=== PATIENT | male | born 1940 | race Caucasian/White ===

== ENCOUNTER 2018-08-03 12:25 | Outpatient (CLI) | payer MEDICARE, OTHER ==
--- NOTE | 2018-08-03 14:05 | RAD ---
Retrograde urethrogram. HISTORY: Bladder outlet obstruction. Stricture. FINDINGS: The distal saphenous was sterilely prepped. Lidocaine gel was used to carefully inserted a Bambi tree catheter tip. Isovue 300 contrast was used to opacify the normal-appearing female urethra. Initially, some difficul ty was encountered at the spastic sphincter. More forcefully injected contrast did pass through the prostatic urethra and into the urinary bladder. No focal strictures are apparent. IMPRESSION: No evidence of urethral injury or stricture.
== END 2018-08-03 12:26 | disposition home or self-care (01) ==
LOC: RAD 12:25
PROVIDERS: ATTEND Urology
DX: N35.919 Unspecified urethral stricture, male, unspecified site (principal)
CPT/HCPCS: 51610; 74450

== ENCOUNTER 2020-06-13 13:07 | Inpatient (IN) | payer MEDICARE, OTHER ==
[2020-06-13 13:35] LABS: Hemoglobin 11.8 g/dL (14.0-18.0); Mean Corpuscular Hemoglobin 29.9 pg (27.0-31.0); Mean Corpuscular Volume 93.3 fL (78.0-98.0); Mean Platelet Volume 8.2 fL (7.4-10.4); Platelet Count 717 thou/uL (130-400); RBC Distribution Width 17.4 % (11.5-14.5); Red Blood Cell (RBC) Count 3.95 mill/uL (4.70-6.10)
[2020-06-13 13:54] LABS: ALT (SGPT) 13 U/L (8-55); AST (SGOT) 42 U/L (5-34); Albumin 3.9 g/dL (3.4-4.8); Alkaline Phosphatase 98 U/L (40-110); Anion Gap 14 mmol/L (10-20); BUN (Urea Nitrogen) 19 mg/dL (8.4-25.7); Bilirubin, Total 0.6 mg/dL (0.2-1.2); Calc. Creatinine Clearance 0 mL/min (70-130); Carbon Dioxide 20 mmol/L (23-31); Chloride 108 mmol/L (98-107); Glucose 128 mg/dL (83-110); Potassium 4.4 mmol/L (3.5-5.1); Protein, Total 6.9 g/dL (5.8-8.1); Sodium 138 mmol/L (136-145)
[2020-06-13 13:56] LABS: Anisocytosis SLIGHT = 6-15 cells (100X) (0-5/hpf); Band 27 % (5-11); Eosinophils 3 % (0-10); Giant Platelets SLIGHT; Large Platelets SLIGHT; Lymphocytes 9 % (21-51); MDiff Complete? YES; Metamyelocyte 3 % (0-0); Monocytes 3 % (0-10); Myelocyte 5 % (0-0); Neutrophil 44 % (42-75); Nucleated RBC 2 % (0); Platelet Morphology Comment Appears Increased; Polychromasia MODERATE = 3-4 cells (100X) (0-2/hpf); Reactive Lymphocytes 5 % (0-10); White Blood Cell (WBC) Count 14.5 thou/uL (4.8-10.8)
[2020-06-13] MEDS ORDERED: Aspirin Chewable 81 MG TAB ONE (14:35)
[2020-06-13] MEDS ORDERED: Lidocaine Viscous Sol 2% 15 ml UD Cup ONE (15:05)
[2020-06-13] MEDS ORDERED: Mag-Al 1200 mg/1200 mg/30 ML UDCUP ONE (15:05)
[2020-06-13] MEDS ORDERED: cefTRIAXone\\ROCEPHIN 1 GM VIAL ONE (15:05)
[2020-06-13 15:27] LABS: INR-International Normal Ratio 1.2; PTT 34.6 sec (22.9-36.1); Prothrombin Time 15.1 sec (12.0-14.7)
[2020-06-13 16:41] LABS: Magnesium 2.4 mg/dL (1.6-2.6); Phosphorus 3.8 mg/dL (2.3-4.7)
[2020-06-13 17:00] LABS: Bilirubin Negative (Negative); Blood, Urine Negative (Negative); Clarity Clear (Clear); Glucose, Urine (Dipstick) Normal (Negative); Ketone, Urine Negative (Negative); Leukocyte Negative Leu/uL (Negative); Nitrite Negative (Negative); Protein, Urine (Dipstick) 300 mg/dL (Neg-Trace); RBC/HPF 0-3 HPF (0-3); Specific Gravity, Urine 1.021 (1.002-1.036); Squamous Epithelial 0-3 HPF (0-3); Urobilinogen Normal mg/dL (Less than 2); WBC/HPF 0-3 HPF (0-3)
[2020-06-13 17:01] LABS: Bacteria/HPF 1+ HPF (None Seen)
[2020-06-13] MEDS ORDERED: Acetaminophen 650 MG Suppository PR PRN (17:31)
[2020-06-13] MEDS ORDERED: Acetaminophen 325 MG TAB PO PRN (17:31)
[2020-06-13 20:36] LABS: Troponin I 0.019 ng/mL (< 0.028)
[2020-06-13 20:52] VITALS: BMI 19.8
[2020-06-13] MEDS: Atorvastatin Calcium 40 MG TAB PO SCH (21:30)
[2020-06-13] MEDS: Heparin 5,000 UNITS/ML VIAL SC SCH (21:30)
[2020-06-14 00:39] LABS: SARS-CoV-2 PCR by NAA Not Detected (NotDetected)
[2020-06-14 05:32] LABS: Hemoglobin 10.3 g/dL (14.0-18.0); Mean Corpuscular HGB CONC 34.4 g/dL (32.0-36.0); Mean Corpuscular Hemoglobin 32.2 pg (27.0-31.0); Mean Corpuscular Volume 93.4 fL (78.0-98.0); RBC Distribution Width 17.2 % (11.5-14.5); Red Blood Cell (RBC) Count 3.21 mill/uL (4.70-6.10); White Blood Cell (WBC) Count 10.3 thou/uL (4.8-10.8)
[2020-06-14 05:36] LABS: Anion Gap 13 mmol/L (10-20); BUN (Urea Nitrogen) 19 mg/dL (8.4-25.7); Calc. Creatinine Clearance 48 mL/min (70-130); Calcium 8.4 mg/dL (7.8-10.44); Carbon Dioxide 21 mmol/L (23-31); Cardiac Risk 6.5 (Less than 4.5); Chloride 108 mmol/L (98-107); Cholesterol 110 mg/dl (< 200 Desired); Glucose 94 mg/dL (83-110); HDL Cholesterol 17 mg/dL (>60 Neg Risk); LDL Cholesterol, Calculated 66 mg/dL; Potassium 4.1 mmol/L (3.5-5.1); Sodium 138 mmol/L (136-145); Triglycerides 135 mg/dL (Less than 150)
[2020-06-14 06:24] LABS: Band 13 % (5-11); Eosinophils 7 % (0-10); Lymphocytes 18 % (21-51); MDiff Complete? YES; Mean Platelet Volume 8.2 fL (7.4-10.4); Monocytes 4 % (0-10); Neutrophil 56 % (42-75); Platelet Count 573 thou/uL (130-400); Platelet Morphology Comment Appears Increased
[2020-06-14] MEDS: Aspirin 81 mg Enteric Coated Tablet PO SCH (08:18)
[2020-06-14] MEDS: Heparin 5,000 UNITS/ML VIAL SC SCH ×2 (08:18→21:50)
[2020-06-14] MEDS: hydrALAZINE 20 MG/ML VIAL SLOW IVP PRN (08:51)
[2020-06-14] MEDS ORDERED: Tamsulosin HCl 0.4 MG CAP PO SCH (09:00)
[2020-06-14] MEDS ORDERED: Clopidogrel Bisulfate 75 MG TAB PO SCH (12:45)
[2020-06-14] MEDS ORDERED: FLU VACC QS2020-21(65YR UP)/PF 240 MCG/0.7 ML SYRINGE IM ONE (21:00)
[2020-06-14] MEDS: Atorvastatin Calcium 40 MG TAB PO SCH (21:51)
[2020-06-15 05:36] LABS: Hemoglobin 10.6 g/dL (14.0-18.0); Mean Corpuscular HGB CONC 32.7 g/dL (32.0-36.0); Mean Corpuscular Hemoglobin 30.2 pg (27.0-31.0); Mean Corpuscular Volume 92.3 fL (78.0-98.0); Mean Platelet Volume 8.3 fL (7.4-10.4); Platelet Count 621 thou/uL (130-400); RBC Distribution Width 17.2 % (11.5-14.5); Red Blood Cell (RBC) Count 3.52 mill/uL (4.70-6.10)
[2020-06-15 05:49] LABS: Anion Gap 14 mmol/L (10-20); BUN (Urea Nitrogen) 20 mg/dL (8.4-25.7); Calc. Creatinine Clearance 45 mL/min (70-130); Calcium 8.7 mg/dL (7.8-10.44); Carbon Dioxide 20 mmol/L (23-31); Chloride 108 mmol/L (98-107); Glucose 94 mg/dL (83-110); Sodium 138 mmol/L (136-145)
[2020-06-15 05:51] LABS: Band 10 % (5-11); Eosinophils 2 % (0-10); Hypochromia SLIGHT = 6-15 cells (100X) (0-5/hpf); Lymphocytes 12 % (21-51); MDiff Complete? YES; Metamyelocyte 1 % (0-0); Monocytes 10 % (0-10); Neutrophil 61 % (42-75); Nucleated RBC 1 % (0); Platelet Morphology Comment Appears Increased; Reactive Lymphocytes 4 % (0-10)
[2020-06-15] MEDS ORDERED: Simvastatin 40 MG TAB PO SCH (09:00)
[2020-06-15] MEDS: Fish Oil 1,000 MG CAP PO SCH (09:04)
[2020-06-15] MEDS: Metamucil PACK PO SCH (09:04)
[2020-06-15] MEDS: Amlodipine 10 MG TAB PO SCH (09:05)
[2020-06-15] MEDS: Aspirin 81 mg Enteric Coated Tablet PO SCH (09:05)
[2020-06-15] MEDS: Vit A,C & E/Lutein/Minerals Tablet PO SCH (09:06)
[2020-06-15] MEDS: Lisinopril 5 MG TAB PO SCH ×2 (09:07→20:50)
[2020-06-15] MEDS: Tamsulosin HCl 0.4 MG CAP PO SCH (09:08)
[2020-06-15] MEDS: Clopidogrel Bisulfate 75 MG TAB PO SCH (09:08)
[2020-06-15] MEDS: Heparin 5,000 UNITS/ML VIAL SC SCH ×2 (09:09→20:51)
[2020-06-15] MEDS: hydrALAZINE 20 MG/ML VIAL SLOW IVP PRN (15:19)
[2020-06-15] MEDS: Atorvastatin Calcium 40 MG TAB PO SCH (20:50)
[2020-06-16 05:17] LABS: Eosinophils 3 % (0-10); Hemoglobin 9.8 g/dL (14.0-18.0); Lymphocytes 18 % (21-51); MDiff Complete? YES; Mean Corpuscular HGB CONC 31.5 g/dL (32.0-36.0); Mean Corpuscular Hemoglobin 29.1 pg (27.0-31.0); Mean Corpuscular Volume 92.5 fL (78.0-98.0); Mean Platelet Volume 8.2 fL (7.4-10.4); Metamyelocyte 6 % (0-0); Monocytes 6 % (0-10); Myelocyte 1 % (0-0); Neutrophil 66 % (42-75); Nucleated RBC 2 % (0); Platelet Count 606 thou/uL (130-400); Platelet Morphology Comment Appears Increased; RBC Distribution Width 17.2 % (11.5-14.5); Red Blood Cell (RBC) Count 3.38 mill/uL (4.70-6.10); White Blood Cell (WBC) Count 11.5 thou/uL (4.8-10.8)
[2020-06-16 05:21] LABS: Anion Gap 12 mmol/L (10-20); BUN (Urea Nitrogen) 22 mg/dL (8.4-25.7); Calc. Creatinine Clearance 50 mL/min (70-130); Calcium 8.2 mg/dL (7.8-10.44); Carbon Dioxide 21 mmol/L (23-31); Chloride 109 mmol/L (98-107); Glucose 102 mg/dL (83-110); Potassium 3.9 mmol/L (3.5-5.1); Sodium 138 mmol/L (136-145)
[2020-06-16 08:02] VITALS: TEMP 98.1
[2020-06-16] MEDS: Fish Oil 1,000 MG CAP PO SCH (08:20)
[2020-06-16] MEDS: Vit A,C & E/Lutein/Minerals Tablet PO SCH (08:20)
[2020-06-16] MEDS: Clopidogrel Bisulfate 75 MG TAB PO SCH (08:20)
[2020-06-16] MEDS: Aspirin 81 mg Enteric Coated Tablet PO SCH (08:20)
[2020-06-16] MEDS: Metamucil PACK PO SCH (08:20)
[2020-06-16] MEDS: Amlodipine 10 MG TAB PO SCH (08:20)
[2020-06-16] MEDS: Heparin 5,000 UNITS/ML VIAL SC SCH (08:21)
[2020-06-16] MEDS: Tamsulosin HCl 0.4 MG CAP PO SCH (08:21)
[2020-06-16] MEDS: Lisinopril 5 MG TAB PO SCH (08:22)
[2020-06-16 08:38] VITALS: BP 170/77
[2020-06-16] MEDS ORDERED: Hydrochlorothiazide 25 MG TAB PO SCH (09:00)
== END 2020-06-16 13:53 | disposition home or self-care (01) | DRG 65 ==
LOC: ERS 13:07 → ERHOLD 15:14 → 2SE 20:30 → OBSVTOIN 06-14 14:39
PROVIDERS: ADMIT Internal Medicine; ATTEND Internal Medicine
DX: I63.81 Other cerebral infarction due to occlusion or stenosis of small artery (principal); G81.94 Hemiplegia, unspecified affecting left nondominant side; N17.9 Acute kidney failure, unspecified; R29.700 NIHSS score 0; Z20.822 Contact with and (suspected) exposure to COVID-19; Z28.21 Immunization not carried out because of patient refusal; F03.90 Unspecified dementia, unspecified severity, without behavioral disturbance, psychotic disturbance, mood disturbance, and anxiety; I10 Essential (primary) hypertension; N40.0 Benign prostatic hyperplasia without lower urinary tract symptoms; E78.5 Hyperlipidemia, unspecified; D72.829 Elevated white blood cell count, unspecified; K21.9 Gastro-esophageal reflux disease without esophagitis; R20.0 Anesthesia of skin; Z79.899 Other long term (current) drug therapy; Z79.82 Long term (current) use of aspirin; Z79.02 Long term (current) use of antithrombotics/antiplatelets; Z82.3 Family history of stroke; Z87.891 Personal history of nicotine dependence; Z82.0 Family history of epilepsy and other diseases of the nervous system
CPT/HCPCS: 36415; 36416; 70450; 70551; 71045; 80048; 80053; 80061; 81003; 81015; 82607; 82746; 83735; 84100; 84443; 84484; 85025; 85610; 85730; 86140; 87040; 87086; 87635; 93005; 93306; 93880; 96365; 96372; 96375; G0378; J0360; J0696; J1644; U0003; U0005